=== PATIENT | female | born 2000 | race Caucasian/White ===

== ENCOUNTER 2019-03-18 13:25 | Outpatient (CLI) | payer BC ==
[~2019-03-18] VITALS: Ht 149.9 cm; Wt 70.0 kg
[~2019-03-18 13:25] MED LIST: PREN-93 PO
[2019-03-18 13:51] VITALS: Ht 149.9 cm; Wt 70.0 kg
== END 2019-03-18 17:00 | disposition home or self-care (01) ==
LOC: L-D 13:25 → OBT 13:25
PROVIDERS: ATTEND Obstetrics & Gynecology
DX: O62.9 Abnormality of forces of labor, unspecified (principal); Z3A.37 37 weeks gestation of pregnancy
CPT/HCPCS: 76815; 76818; Z7500; G0463

== ENCOUNTER 2019-03-20 11:48 | Outpatient (CLI) | payer BC ==
[~2019-03-20] VITALS: Ht 149.9 cm; Wt 71.5 kg
[2019-03-20 12:03] VITALS: Ht 149.9 cm; Wt 71.5 kg
[2019-03-20 12:04] VITALS: BP 109/69; PULSE 86; RESP 18
== END 2019-03-20 16:05 | disposition home or self-care (01) ==
LOC: L-D 11:48 → OBT 11:48
PROVIDERS: ATTEND Obstetrics & Gynecology
DX: O36.8330 Maternal care for abnormalities of the fetal heart rate or rhythm, third trimester, not applicable or unspecified (principal); Z3A.37 37 weeks gestation of pregnancy
CPT/HCPCS: 76818; Z7500; G0463

== ENCOUNTER 2019-03-26 15:19 | Inpatient (IN) | payer BC ==
[~2019-03-26] VITALS: Ht 149.9 cm; Wt 70.9 kg
[2019-03-26 15:59] VITALS: Ht 149.9 cm; Wt 70.9 kg
[2019-03-26 16:00] VITALS: BP 106/71; PULSE 96; RESP 19
[2019-03-26] MEDS ORDERED: OXYTOCIN 30 UNITS/LR 500 ML IV PRN (19:30)
[2019-03-26] MEDS ORDERED: MINERAL OIL LIGHT 10 ML VIAL TOP PRN (19:30)
[2019-03-26] MEDS ORDERED: CARBOPROST 250 MCG INJ IM PRN (19:30)
[2019-03-26] MEDS ORDERED: AMPICILLIN 2 GM/NS (PMX) 100 ML IV ONE (19:30)
[2019-03-26] MEDS ORDERED: LIDOCAINE 1% (MPF) 30 ML INJ INJ PRN (19:30)
[2019-03-26] MEDS ORDERED: OXYTOCIN 30 UNITS/LR 500 ML IV SCH ×2 (19:30)
[2019-03-26] MEDS ORDERED: IBUPROFEN 600 MG TAB PO PRN (19:30)
[2019-03-26] MEDS ORDERED: MISOPROSTOL 200 MCG TAB PR PRN (19:30)
[2019-03-26] MEDS ORDERED: METHYLERGONOVINE 0.2 MG INJ IM PRN (19:30)
[2019-03-26] MEDS: LACTATED RINGER'S 1,000 ML IV SCH (21:59)
[2019-03-26] MEDS ORDERED: AMPICILLIN 1 GM/NS (PMX) 50 ML IV SCH (23:30)
[2019-03-27] MEDS: MISOPROSTOL 50 MCG CAPSULE PO SCH ×3 (00:47→15:13)
[2019-03-27] MEDS: BUTORPHANOL 2 MG INJ IV PRN (03:50)
[2019-03-27] MEDS: LACTATED RINGER'S 1,000 ML IV SCH (18:26)
[2019-03-27] MEDS ORDERED: OXYTOCIN 30 UNITS/LR 500 ML IV SCH (23:30)
[2019-03-28] MEDS: LACTATED RINGER'S 1,000 ML IV SCH ×5 (02:51→23:59)
[2019-03-28] MEDS: BUTORPHANOL 2 MG INJ IV PRN (15:04)
[2019-03-28] MEDS ORDERED: NALOXONE (0.4 MG/ML) INJ IV PRN (17:30)
[2019-03-28] MEDS ORDERED: DIPHENHYDRAMINE 50 MG INJ IV PRN (17:30)
[2019-03-28] MEDS ORDERED: ONDANSETRON 4 MG INJ IV PRN (17:30)
[2019-03-28] MEDS ORDERED: FENTAnyl 2MCG/ML-ROPIV 0.2% 100 ML BAG EPI SCH (17:30)
[2019-03-28] MEDS ORDERED: OXYTOCIN 30 UNITS/LR 500 ML IV SCH (20:33)
[2019-03-28] MEDS ORDERED: OXYTOCIN 30 UNITS/LR 500 ML IV PRN (21:00)
[2019-03-28] MEDS ORDERED: NACL 0.9% 3 ML SYG IV SCH (21:00)
[2019-03-28] MEDS ORDERED: CARBOPROST 250 MCG INJ IM PRN (21:00)
[2019-03-28] MEDS ORDERED: METHYLERGONOVINE 0.2 MG INJ IM PRN (21:00)
[2019-03-28] MEDS ORDERED: LANOLIN HPA 1 PKT TOP PRN (21:00)
[2019-03-28] MEDS ORDERED: MISOPROSTOL 200 MCG TAB PR PRN (21:00)
[2019-03-28 23:40] VITALS: BP 116/68; PULSE 100; RESP 18
[2019-03-29 00:30] VITALS: BP 119/72; PULSE 89; RESP 18
[2019-03-29] MEDS: IBUPROFEN 800 MG TAB PO SCH ×4 (01:06→17:25)
[2019-03-29] MEDS: LACTATED RINGER'S 1,000 ML IV SCH (03:03)
[2019-03-29 04:15] VITALS: BP 104/58; PULSE 88; RESP 18
[2019-03-29 08:00] VITALS: BP 118/63; PULSE 78; RESP 20
[2019-03-29] MEDS ORDERED: BENZOCAINE 20% 56 ML SPRAY TOP PRN (11:30)
[2019-03-29] MEDS ORDERED: WITCH HAZEL/GLYCERIN PAD PR PRN (11:30)
[2019-03-29 15:37] VITALS: BP 112/76; PULSE 72; RESP 18
[2019-03-29 20:15] VITALS: BP 114/64; PULSE 93; RESP 20
[2019-03-30] MEDS: IBUPROFEN 800 MG TAB PO SCH ×3 (00:07→11:56)
[2019-03-30 04:31] VITALS: BP 106/63; PULSE 68; RESP 18
[2019-03-30 08:15] VITALS: BP 119/79; PULSE 75; RESP 17
[2019-03-30] MEDS ORDERED: DIPHTH/TET/ACEL PERTUSS (ADULT) 0.5 ML VIAL IM* ONE (12:00)
== END 2019-03-30 14:00 | disposition home or self-care (01) | DRG 807 ==
LOC: OBT 15:19 → L-D 15:22 → OBT 17:55 → L-D 03-27 03:56 → UNDODISIN 03-27 04:48 → MS1 03-28 23:28 → PP1 03-29 18:59
PROVIDERS: ADMIT Obstetrics & Gynecology; ATTEND Obstetrics & Gynecology
PROC: 10E0XZZ Delivery of Products of Conception, External Approach (ICD-10-PCS; principal; 2019-03-28)
PROC: 0HQ9XZZ Repair Perineum Skin, External Approach (ICD-10-PCS; 2019-03-28)
PROC: 3E033VJ Introduction of Other Hormone into Peripheral Vein, Percutaneous Approach (ICD-10-PCS; 2019-03-28)
DX: O70.0 First degree perineal laceration during delivery (principal); Z37.0 Single live birth; O76 Abnormality in fetal heart rate and rhythm complicating labor and delivery; Z3A.38 38 weeks gestation of pregnancy
CPT/HCPCS: 62322; 76815; 76818; 80307; 81001; 81003; 85025; 85610; 85730; 86592; 86850; 86900; 86901; 87340; 90715; 99464; G0463; J0595; J2590; J3010; J7120